=== PATIENT | male | born 1985 | race Caucasian/White ===

== ENCOUNTER 2017-08-17 22:18 | Emergency (ER) | payer SELFPAY ==
[~2017-08-17] VITALS: Ht 185.4 cm; Wt 90.7 kg
[2017-08-17] MEDS ORDERED: MOBIC7.5 MG PO ×2 (23:31→23:46)
[2017-08-17] MEDS ORDERED: ROBAXIN-750750 MG PO ×2 (23:31→23:46)
== END 2017-08-17 23:55 | disposition home or self-care (01) ==
LOC: ED 22:18
DX: M54.40 Lumbago with sciatica, unspecified side (principal); F17.200 Nicotine dependence, unspecified, uncomplicated

== ENCOUNTER → 2018-02-03 | Outpatient (CLI) | payer OTHER ==
[~2018-02-03] MED LIST: MOBIC7.5 MG PO; ROBAXIN-750750 MG PO
== END | disposition home or self-care (01) ==
LOC: RAD 11:29
DX: M54.5 Low back pain (principal); R05 Cough; R06.02 Shortness of breath; F17.200 Nicotine dependence, unspecified, uncomplicated

== ENCOUNTER 2020-01-27 21:08 | Emergency (ER) | payer OTHER ==
[~2020-01-27] VITALS: Ht 185.4 cm; Wt 93.0 kg
[2020-01-27] MEDS ORDERED: PERCOCET 5-3251 EACH PO (23:03)
== END 2020-01-27 23:20 | disposition home or self-care (01) ==
LOC: ED 21:08
DX: S62.102A Fracture of unspecified carpal bone, left wrist, initial encounter for closed fracture (principal); Z79.899 Other long term (current) drug therapy; W22.8XXA Striking against or struck by other objects, initial encounter; Y93.89 Activity, other specified; Y92.89 Other specified places as the place of occurrence of the external cause; Y99.8 Other external cause status